=== PATIENT | female | born 1945 | race Caucasian/White ===

== ENCOUNTER → 2016-06-12 16:48 | Outpatient (CLI) | payer MEDICARE, OTHER ==
[2014-07-30 09:57] VITALS: BMI 25.7
[~2016-06-12 16:48] MED LIST: DYAZIDE 37.5/251 CAP PO; ESTRACE1 MG PO; MAXALT10 MG PO; PRILOSEC20 MG PO; PROPIONATE; TOPROL XL25 MG PO
== END | disposition home or self-care (01) ==
LOC: D.MAMMO 09:30
DX: R92.8 Other abnormal and inconclusive findings on diagnostic imaging of breast (principal)

== ENCOUNTER → 2016-12-12 11:58 | Outpatient (CLI) | payer MEDICARE, OTHER ==
[2014-07-30 09:57] VITALS: BMI 25.7
== END | disposition home or self-care (01) ==
LOC: D.MAMMO 08:30
DX: R92.8 Other abnormal and inconclusive findings on diagnostic imaging of breast (principal)

== ENCOUNTER → 2017-06-12 20:04 | Outpatient (CLI) | payer MEDICARE, OTHER ==
[2014-07-30 09:57] VITALS: BMI 25.7
== END | disposition home or self-care (01) ==
LOC: D.MAMMO 08:30
DX: R92.8 Other abnormal and inconclusive findings on diagnostic imaging of breast (principal)

== ENCOUNTER → 2018-06-27 10:49 | Outpatient (CLI) | payer MEDICARE, BC ==
[2014-07-30 09:57] VITALS: BMI 25.7
--- NOTE | 2018-06-28 15:03 | EC ---
PATIENT:ILIANA GALVAN DATE OF SERVICE: 06/27/18 SEX: F MEDICAL RECORD: [id number] DATE OF : 45 LOCATION:[facility] AGE OF PATIENT: 73 ADMISSION DATE: 06/27/18 REFERRING PHYSICIAN: INTERPRETING PHYSICIAN: MAKI MIJARES MD ECHOCARDIOGRAM REPORT ECHO CHARGES 4 ECHO COMPLETE Date: 06/27/18 CLINICAL DIAGNOSIS: MR/TR H/O SVT ECHOCARDIOGRAPHIC MEASUREMENTS (adult normal given) AC root (d.<3.7cm) 2.4 cm LV Septum d (<1.2 cm> 1.0 cm Valve Excursion 1.8 cm LV Septum (systole) 1.5 cm Left Atria (s.<4.0cm> 3.6 cm LVPW d(<1.2cm) 1.0 cm RV (d.<2.3cm) 2.9 cm LVPW (sytole) 1.6 cm LV diastole(<5.6CM) 4.0 cm MV E-F(>70mm/sec) cm LV systole 2.2 cm LVOT Diameter 1.8 cm MV exc.(>10mm) cm Est.ejection fraction (50-75%) % DOPPLER: LVIT cm/sec A 67.0 cm/sec E 48.0 cm/sec LA cm/sec RVSP 39.0 mmHg LVOT 100 cm/sec AOP1/2T m/s Asc. Ao 122 cm/sec RVOT 50.0 cm/sec RA cm/sec PA 66.0 cm/sec AV Gradient Peak 6.0 mmHg AV Mean 3.0 mmHg AV Area 2.0 cm MV Gradient Peak 3.8 mmHg MV Mean 0.85 mmHg MV Area cm COMMENTS: OP - HC Global Commodity Manager: Grace LIU TOBI Underwriting Support Specialist: 1 Dr. Mijares TAPE# PACS Pericardial Effusion N DATE OF SERVICE: 06/27/2018 FINDINGS: 1. Left ventricular chamber size is within normal limits. Left ventricular systolic function is normal. Overall ejection fraction estimated at 55%. 2. Left atrium, right atrium, and right ventricular chamber sizes are within normal limits. 3. Valvular structures have normal structure and motion. 4. Doppler interrogation reveals moderate mitral regurgitation, moderate tricuspid regurgitation. No other valvular insufficiency or stenosis. ECHOCARDIOGRAM REPORT [id number] ILIANA GALVAN Pulmonary systolic pressure is estimated 39 mmHg. 5. No evidence of pericardial effusion or left ventricular thrombus. TRANSINT:[id number] Voice Confirmation ID: [id number] DOCUMENT ID: [id number] MAKI MIJARES MD at 1503 CC: [id number] DICTATION DATE: 06/28/18 0903 ART TEACHER: 06/28/18 1122 DEP CLI 06/27/[address] [id number]
== END | disposition home or self-care (01) ==
LOC: D.HCCARDIO 10:49
PROVIDERS: ATTEND Internal Medicine Interventional Cardiology
DX: I08.1 Rheumatic disorders of both mitral and tricuspid valves (principal)

== ENCOUNTER 2019-01-07 10:30 | Outpatient (CLI) | payer MEDICARE ==
[2014-07-30 09:57] VITALS: BMI 25.7
== END 2019-01-07 11:00 | disposition home or self-care (01) ==
LOC: D.MAMMO 10:30
PROVIDERS: ATTEND Family Medicine
DX: Z12.31 Encounter for screening mammogram for malignant neoplasm of breast (principal)

== ENCOUNTER → 2019-07-15 10:46 | Outpatient (CLI) | payer MEDICARE, BC ==
[2014-07-30 09:57] VITALS: BMI 25.7
== END | disposition home or self-care (01) ==
LOC: D.HCCECHO 10:46
PROVIDERS: ATTEND Internal Medicine Cardiovascular Disease
DX: I34.0 Nonrheumatic mitral (valve) insufficiency (principal)

== ENCOUNTER → 2020-06-11 12:06 | Outpatient (CLI) | payer MEDICARE, BC ==
[2014-07-30 09:57] VITALS: BMI 25.7
[2020-06-11 12:48] LABS: BASOPHILS 0.4 % (0-2); EOSINOPHILS 0.6 % (0-7); HEMATOCRIT 39.4 % (36.0-48.0); HEMOGLOBIN 13.6 g/dL (12-16); LYMPHOCYTE ABS# 1.24 10x3/uL (1.18-3.74); LYMPHOCYTES 24.8 % (15-50); MCH 31.3 pg (26.0-34.0); MCHC 34.5 g/dL (31.0-37.0); MCV 90.6 fL (80.0-100.0); MEAN PLATELET VOLUME 12.2 fL (7.4-10.4); MONOCYTES 10.2 % (2-11); NEUTROPHIL ABS# 3.21 10x3/uL (1.56-6.13); PLATELET COUNT 128 10x3/uL (130-400); RBC 4.35 10x6/uL (4.00-5.40); RDW 12.6 % (11.5-14.5)
[2020-06-11 12:58] LABS: CALC OSMOLALITY 276 mosm/kg (275-300); CALCIUM 8.8 mg/dL (8.5-10.1); CARBON DIOXIDE 31.6 mmol/L (21.0-32.0); CHLORIDE - SERUM 101 mmol/L (98-107); CREATININE - SERUM 0.7 mg/dL (0.6-1.3); GLUCOSE 98 mg/dL (74-106); SODIUM 137 mmol/L (136-145); UREA NITROGEN 20 mg/dL (7-18); eGFR NON AFRICAN AMERICAN 86 mL/min (90-120)
[2020-06-11 13:17] LABS: POTASSIUM - SERUM 2.8 mmol/L (3.5-5.1)
[2020-06-12 11:10] LABS: HEPATITIS C ANTIBODY <0.1 S/CO RAT (0.0-0.9)
== END | disposition home or self-care (01) ==
LOC: D.LAB 12:06
PROVIDERS: ATTEND Surgery Plastic and Reconstructive Surgery
DX: Z13.0 Encounter for screening for diseases of the blood and blood-forming organs and certain disorders involving the immune mechanism (principal)

== ENCOUNTER → 2020-08-26 13:24 | Outpatient (CLI) | payer MEDICARE, BC ==
[2014-07-30 09:57] VITALS: BMI 25.7
== END | disposition home or self-care (01) ==
LOC: D.HCCECHO 07-19 13:30
PROVIDERS: ATTEND Internal Medicine Cardiovascular Disease
DX: I10 Essential (primary) hypertension (principal)